=== PATIENT | male | born 1995 | race Caucasian/White ===

== ENCOUNTER 2017-02-26 03:55 | Inpatient (IN) | payer BC, OTHER ==
[~2017-02-26] VITALS: Ht 175.3 cm; Wt 62.2 kg
[2017-02-26 04:56] LABS: BASO % 0.3 %; BASO ABS # 0.03 K/uL (0-0.2); EOS % 0.1 %; EOS ABS # 0.01 K/uL (0-0.5); HEMATOCRIT 39.1 % (42-52); HEMOGLOBIN 13.3 g/dL (14.0-18.0); IG# 0.02 K/uL (0.00-0.02); LYMPH % 13.9 %; LYMPH ABS # 1.47 K/uL (1.2-3.4); MEAN CELL VOLUME 88.7 fL (80-100); MEAN CORPUSCULAR HEMOGLOBIN 30.2 pg (25-34); MEAN PLATELET VOLUME 9.8 fL (7.4-10.4); MONO % 4.9 %; MONO ABS # 0.52 K/uL (0.11-0.59); NEUT % 80.6 %; NEUT ABS # 8.53 K/uL (1.4-6.5); PLATELET COUNT 277 K/uL (130-400); RED CELL DISTRIBUTION WIDTH CV 13.1 % (11.5-14.5); RED CELL DISTRIBUTION WIDTH SD 42.3 fL (36.4-46.3); WHITE BLOOD COUNT 10.58 K/uL (4.8-10.8)
[2017-02-26 05:18] LABS: ALBUMIN 4.5 gm/dl (3.4-5.0); CREATININE 0.97 mg/dl (0.60-1.40); POTASSIUM 3.9 mmol/L (3.5-5.1)
[2017-02-26 05:29] LABS: TOTAL PROTEIN 8.6 gm/dl (6.4-8.2)
--- NOTE | 2017-02-26 07:42 | EMERGENCY ROOM VISIT NOTE ---
History Report prepared by [place]: Carolyn Flores Under the Supervision of: Dr. Luma Tai D.O. First contact with patient: 04:03 Chief Complaint: MENTAL HEALTH EVALUATION Stated Complaint: MENTAL HEALTH History of Present Illness The patient is a 22 year old male who presents to the Emergency Room for a mental health evaluation. Per case management, the patient was out drinking for his 22st birthday with his roommate. They report that the roommate saw him with a cord in his room and slammed the door in his face. They states that the roommate then opened the door and he had the cord unwrapped. Case management states that at this time the patient told his roommate that "one of them had to do it." They report that the roommate got away and called 911 while holding the door shut. They state that when he reopened it, the patient had a belt tied around his neck. The patient states that he has never done this before and wasn' t going to actually do anything. He states that he did have the belt around his neck. The patient denies a history of depression and ever being suicidal before tonight. Source of History: patient, nursing staff Onset: this evening Position: other (global) Quality: other (mental health) Timing: other (episode) Note: The patient admits to the belt being tied around his neck. The patient denies depression and being suicidal. Review of Systems See HPI for pertinent positives & negatives. A total of 10 systems reviewed and were otherwise negative. Past Medical & Surgical Surgical Problems: (1) [place] teeth extracted Family History Patient reports no known family medical history. Social History Smoking Status: Never Smoker Alcohol Use: occasionally Marital Status: single Housing Status: lives with roommate Occupation Status: [employer] student Current/Historical Medications No Active Prescriptions or Reported Meds Allergies Coded Allergies: No Known Allergies (Unverified , 02/26/17) Physical Exam Vital Signs Date Time Temp Pulse Resp B/P (MAP) Pulse Ox O2 Delivery O2 Flow Rate FiO2 02/26/17 06:00 84 20 127/89 98 Room Air 02/26/17 04:03 36.6 93 18 133/101 96 Room Air Physical Exam General: Smells of alcohol, but is cooperative. HEENT: Head - normocephalic and atraumatic Pupils are equal, round, and reactive to light. Extraocular eye muscles are intact, and sclera are anicteric. Nose - moist nasal mucosa without discharge. Mouth - moist buccal mucosa. Oropharynx is nonerythematous and there is no tonsillar exudate or edema noted. Neck: Supple; no JVD, nuchal rigidity, cervical lymphadenopathy. Heart: Regular rate and rhythm. There is a normal S1 and S2 with no murmurs, clicks, or gallops appreciated. Lungs: Clear to auscultation bilaterally with no wheezes, rales, or rhonchi. Abdomen: Soft, completely nontender, nondistended, with good bowel sounds. There are no palpable pulsatile masses or hepatosplenomegaly. There is no guarding, rigidity, or rebound noted. Extremities: No evidence of cyanosis, clubbing, or edema. There are easily palpable peripheral pulses. Skin: warm and dry with good turgor and no rashes. Psych: Appears slightly depressed. Admits to putting a belt around his neck . Medical Decision & Procedures Laboratory Results 02/26/17 04:30 Red Blood Count 4.41, Mean Corpuscular Volume 88.7, Mean Corpuscular Hemoglobin 30.2, Mean Corpuscular Hemoglobin Concent 34.0, Mean Platelet Volume 9.8, Neutrophils (%) (Auto) 80.6, Lymphocytes (%) (Auto) 13.9, Monocytes (%) (Auto) 4.9, Eosinophils (%) (Auto) 0.1, Basophils (%) (Auto) 0.3, Neutrophils # (Auto) 8.53, Lymphocytes # (Auto) 1.47, Monocytes # (Auto) 0.52, Eosinophils # (Auto) 0.01, Basophils # (Auto) 0.03 02/26/17 04:30 Test 02/26/17 04:15 02/26/17 04:30 Urine Color YELLOW Urine Appearance CLEAR (CLEAR) Urine pH 5.5 (4.5-7.5) Urine Specific [place] 1.020 (1.000-1.030) Urine Protein NEG (NEG) Urine Glucose (UA) NEG (NEG) Urine Ketones NEG (NEG) Urine Occult Blood NEG (NEG) Urine Nitrite NEG (NEG) Urine Bilirubin NEG (NEG) Urine Urobilinogen NEG (NEG) Urine Leukocyte Esterase NEG (NEG) Urine Opiates Screen NEG (NEG) Urine Methadone, Qualitative NEG (NEG) Urine Barbiturates NEG (NEG) Urine Phencyclidine (PCP) Level NEG (NEG) Ur Amphetamine/Methamphetamine NEG (NEG) MDMA (Ecstasy) Screen NEG (NEG) Urine Benzodiazepines Screen NEG (NEG) Urine Cocaine Metabolite NEG (NEG) Urine Marijuana (THC) NEG (NEG) White Blood Count 10.58 K/uL (4.8-10.8) Red Blood Count 4.41 M/uL (4.7-6.1) Hemoglobin 13.3 g/dL (14.0-18.0) Hematocrit 39.1 % (42-52) Mean Corpuscular Volume 88.7 fL (80-100) Mean Corpuscular Hemoglobin 30.2 pg (25-34) Mean Corpuscular Hemoglobin Concent 34.0 g/dl (32-36) Platelet Count 277 K/uL (130-400) Mean Platelet Volume 9.8 fL (7.4-10.4) Neutrophils (%) (Auto) 80.6 % Lymphocytes (%) (Auto) 13.9 % Monocytes (%) (Auto) 4.9 % Eosinophils (%) (Auto) 0.1 % Basophils (%) (Auto) 0.3 % Neutrophils # (Auto) 8.53 K/uL (1.4-6.5) Lymphocytes # (Auto) 1.47 K/uL (1.2-3.4) Monocytes # (Auto) 0.52 K/uL (0.11-0.59) Eosinophils # (Auto) 0.01 K/uL (0-0.5) Basophils # (Auto) 0.03 K/uL (0-0.2) RDW Standard Deviation 42.3 fL (36.4-46.3) RDW Coefficient of Variation 13.1 % (11.5-14.5) Immature Granulocyte % (Auto) 0.2 % Immature Granulocyte # (Auto) 0.02 K/uL (0.00-0.02) Anion Gap 5.0 mmol/L (3-11) Est Creatinine Clear Calc Drug Dose 94.2 ml/min Estimated GFR () 128.8 Estimated GFR (Non- 111.1 BUN/Creatinine Ratio 15.7 (10-20) Calcium Level 9.0 mg/dl (8.5-10.1) Total Bilirubin 0.4 mg/dl (0.2-1) Aspartate Amino Transf (AST/SGOT) 40 U/L (15-37) Alanine Aminotransferase (ALT/SGPT) 72 U/L (12-78) Alkaline Phosphatase 93 U/L (45-117) Total Protein 8.6 gm/dl (6.4-8.2) Albumin 4.5 gm/dl (3.4-5.0) Globulin 4.1 gm/dl (2.5-4.0) Albumin/Globulin Ratio 1.1 (0.9-2) Thyroid Stimulating Hormone (TSH) 1.010 uIu/ml (0.300-4.500) Salicylates Level < 1.7 mg/dl (2.8-20) Acetaminophen Level < 2 ug/ml (10-30) Ethyl Alcohol mg/dL 186.0 mg/dl (0-3) Laboratory results per my review. ED Course 0457: Past medical records reviewed. The patient was evaluated in room A5. A complete history and physical exam was performed. Labs were drawn as above. 0629: I reevaluated the patient and he was sound asleep. 0730: The patient was signed out to Dr. Hooks at change of shift. He will be medically cleared at 8 AM for psychiatric evaluation. Medical Decision The patient is a 22 year old male who presents to the Emergency Room for a mental health evaluation. Differential diagnoses include alcohol overdose, mood disorder, suicide attempt , attempted hanging. LABS: Alcohol 186 Normal white count Slightly anemic with a hemoglobin of 13.3 Normal renal function Normal glucose Normal LFTs except his AST was 40 Normal TSH Normal urinalysis Aspirin and Tylenol levels are negative Tox screen is negative this is a 22-year-old male patient presents to the emergency department after consuming alcohol and making a suicidal gesture. The patient was drinking alcohol for history first birthday. Upon arriving at home, the patient put a belt around his neck and threatened to hang himself. It seems that the patient needs inpatient psychiatric care to maintain his safety. Medication Reconcilliation Current Medication List: was personally reviewed by me Blood Pressure Screening Patient's blood pressure: Normal blood pressure Blood pressure disposition: Did not require urgent referral Impression Primary Impression: Suicide attempt Additional Impression: Alcohol intoxication Scribe Attestation The scribe's documentation has been prepared under my direction and personally reviewed by me in its entirety. I confirm that the note above accurately reflects all work, treatment, procedures, and medical decision making performed by me. Departure Information Dispostion Still a Patient Prescriptions No Active Prescriptions or Reported Meds Patient Instructions My [facility] Health Problem Qualifiers Additional Impression: Alcohol intoxication Complication of substance-induced condition: uncomplicated Qualified Codes: F10.920 - Alcohol use, unspecified with intoxication, uncomplicated
--- NOTE | 2017-02-26 08:09 | EMERGENCY ROOM VISIT NOTE ---
ED Visit Note Patient signed out to me at change of shift. History and physical verified by me. Upon discussing this case with the patient's morning I strongly recommended to him that we discussed everything with his parents however he is adamantly refusing. He is going to be examined by [facility] liaison. The patient was accepted to [facility]
[2017-02-26] MEDS ORDERED: SODIUM CHLORIDE 0.65% NA SOLN 45 ML (OCEAN) PRN (12:00)
[2017-02-26] MEDS ORDERED: MAGNESIUM HYDROXIDE SUSP 30 ML UDC PO PRN (12:00)
[2017-02-26] MEDS ORDERED: ALUMINUM/MAGNESIUM SUSP 30 ML UDC PO PRN (12:00)
[2017-02-26] MEDS ORDERED: BISMUTH SUBSALICYLATE PER ML OMNICELL CHARGE PO PRN (12:00)
[2017-02-26] MEDS ORDERED: ACETAMINOPHEN 325 MG TAB PO PRN (12:00)
[2017-02-26] MEDS ORDERED: hydrOXYzine HCL 25 MG TAB PO PRN ×2 (12:00)
[2017-02-26 12:01] VITALS: O2SAT 97
[2017-02-26 13:48] VITALS: BP 126/77; PULSE 82; TEMP 36.7; Ht 175.3 cm; Wt 62.2 kg
--- NOTE | 2017-02-26 14:04 | Psychiatric History & Physical ---
History Date of Service Feb 26, 2017. Identifying Data Jluis Marquez is a 22-year-old male admitted voluntarily on Feb 26, 2017 at 11:51 who was brought to the emergency department by police after roommate activated 911 in response to the patient's suicide attempt by putting a belt around his neck. Information is gathered from the patient and considered to be reliable Chief Complaint "Last night was [birth year] birthday". 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 In high school and early college he endorses that he had some bullying, struggled in his friend group but that his been getting better lately. [employer]. He denies any significant triggers to his episodes of depression but says that he finds some academic issues stressful. 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 He experiences anxiety when he has a lot of work due in general he has a sense that he has forgotten something. He admits that over the last 6 months or so he's been having intermittent thoughts of suicide but denies that he has ever had a plan or made an attempt. Yesterday was his 22st birthday and he went out with friends drinking. He says he had a good time while he was drinking but when he came back to his apartment with his roommate, he was feeling sad and put a belt around his neck. He denies that he was attempting suicide at that time but was considering whether or not suicide was an option for him. His roommate walked in and the patient panicked not wanting his roommate to overreact and cause him to be hospitalized. Jluis then panicked, took the belt from his neck but apparently went to another room and picked up a "record" and continued to consider whether or not suicide was the direction he wanted to go. By that time the roommate had made a decision to call 911. Police arrived and after talking with him he agreed to come to the hospital voluntarily. The patient is not happy about being in the hospital. He is asking how quickly he can be discharged. He does not want his family to know he is here and does not want his friend group to be aware either. He fears that they will focus on his depression and not on maintaining their regular relationship. He reports sleep that is generally okay, getting 5-7 hours per night with a nap in the day. His appetite has been up. He has been attending the gym in order to work out as he has had chronic disappointment in his own appearance. His energy has been up lately. Focus and concentration is described as "normal". He does have a tendency to anxiety at bedtime saying that he lays awake worrying about things. He reports that he has always had difficulty falling asleep even as a child. He describes himself generally as being shy around strangers but outgoing with friends. He feels that he is normally a jokester, does not let things bother him. He feels a need to keep busy, does not like idle time. I'm he denies any discrete episodes of euphoric mood, sleeplessness or pleasure seeking behavior that would be congruent with a bipolar disorder. He denies self-injurious behaviors. Past Psychiatric History Current OP Treatment: no current treatment Prior OP Treatment: no prior treatment Access to a Gun: Yes Suicide Attempts: No Past Medication Trials None Past Medical/Surgical History (1) TMJ (temporomandibular joint syndrome) Allergies Allergies: Coded Allergies: No Known Allergies (Unverified , 02/26/17) Home Medications No Active Prescriptions or Reported Meds Family History FH: cardiovascular disease FH: multiple sclerosis Pneumothorax History of Suicide: No History of Substance Abuse: Yes (paternal grandfather alcohol) Psychiatric History: Yes (mother with depression) Alcohol Use Alcohol Use In Past 12 Months: Yes (2-3 times per week) The patient endorses drinking on Fridays and occasional Saturdays since the fall. He has had 1 blackout in his life. He denies any legal consequences to alcohol. He will generally drinks 5 beers in a sitting and occasionally an unspecified amount of liquor Smoking Use Smoking Status: Never Smoker Substance History Denies Personal History Lives in: family lives in [place] Childhood: Raised by mother and father. He has one younger brother. Parents were both in the previously. 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 Relationship History: never Children: none Spiritual Affiliation: Church Legal History: none Psychological Trauma History: Denies Hx Traumatic Event Review of Systems Constitutional: denies no symptoms reported, denies see HPI, denies chills, denies diaphoresis, denies fever, denies malaise, denies weakness, denies other Eyes: denies: no symptoms, as stated in HPI, eye pain, tearing, itching, redness, discharge, double vision, visual changes, blurred vision, photophobia, other ENT: denies: no symptoms reported, see HPI, ear pain, ear discharge, loss of hearing, tinnitus, nasal pain, nasal congestion, rhinorrhea, epistaxis, sore throat, stidor, throat swelling, mouth pain, mouth swelling, dental pain, gum swelling, other Cardiovascular: denies: no symptoms reported, see HPI, chest pain, chest tightness, chest pressure, diaphoresis, palpitations, syncope, other Respiratory: denies: no symptoms reported, see HPI, cough, orthopnea, short of breath, stridor, wheezing, sputum production, cyanosis, PUGH, PND, other Gastrointestinal: denies no symptoms reported, denies see HPI, denies abdominal pain, denies constipation, denies diarrhea, denies nausea, denies vomiting, denies other Genitourinary - Male: denies: no symptoms, see HPI, rash, amenorrhea, penile itching, penile discharge, testicular pain, testicular swelling, impotence, other Musculoskeletal: denies no symptoms reported, denies see HPI, denies back pain , denies gout, denies joint pain, denies joint swelling, denies muscle pain, denies muscle stiffness, denies neck pain, denies other Integumentary: denies no symptoms reported, denies see HPI, denies change in color, denies change in hair/nails, denies dryness, denies lesions, denies lumps , denies rash, denies other Neurologic: denies: no symptoms, see HPI, headache, numbness, paresthesias, pre -existing deficit, seizure, tingling, tremors, general weakness, tics, focal weakness, vertigo, lethargy, memory loss, dizziness, other Endocrine: denies: no symptoms, as stated in HPI, cold intolerance, heat intolerance, hair changes, goiter, polydipsia, polyuria, skin changes, other Hematologic / Lymphatic: denies: no symptoms, as stated in HPI, abnormal clotting, adenopathy, anemia, easy bleeding, easy bruising, gums bleeding, petechiae, other Examination Physical Examination Exam performed by Dr. Hooks in the emergency Department has been reviewed and accepted his medical clearance for our unit Vital Signs Vital Signs Past 12 Hours Date Time Temp Pulse Resp B/P (MAP) Pulse Ox O2 Delivery O2 Flow Rate FiO2 02/26/17 12:01 78 18 116/55 97 Room Air 02/26/17 06:00 84 20 127/89 98 Room Air 02/26/17 04:03 36.6 93 18 133/101 96 Room Air Laboratory Results Last 24 Hours Test 02/26/17 04:15 02/26/17 04:30 Urine Color YELLOW Urine Appearance CLEAR Urine pH 5.5 Urine Specific [place] 1.020 Urine Protein NEG Urine Glucose (UA) NEG Urine Ketones NEG Urine Occult Blood NEG Urine Nitrite NEG Urine Bilirubin NEG Urine Urobilinogen NEG Urine Leukocyte Esterase NEG Urine Opiates Screen NEG Urine Methadone, Qualitative NEG Urine Barbiturates NEG Urine Phencyclidine (PCP) Level NEG Ur Amphetamine/Methamphetamine NEG MDMA (Ecstasy) Screen NEG Urine Benzodiazepines Screen NEG Urine Cocaine Metabolite NEG Urine Marijuana (THC) NEG White Blood Count 10.58 K/uL Red Blood Count 4.41 M/uL Hemoglobin 13.3 g/dL Hematocrit 39.1 % Mean Corpuscular Volume 88.7 fL Mean Corpuscular Hemoglobin 30.2 pg Mean Corpuscular Hemoglobin Concent 34.0 g/dl Platelet Count 277 K/uL Mean Platelet Volume 9.8 fL Neutrophils (%) (Auto) 80.6 % Lymphocytes (%) (Auto) 13.9 % Monocytes (%) (Auto) 4.9 % Eosinophils (%) (Auto) 0.1 % Basophils (%) (Auto) 0.3 % Neutrophils # (Auto) 8.53 K/uL Lymphocytes # (Auto) 1.47 K/uL Monocytes # (Auto) 0.52 K/uL Eosinophils # (Auto) 0.01 K/uL Basophils # (Auto) 0.03 K/uL RDW Standard Deviation 42.3 fL RDW Coefficient of Variation 13.1 % Immature Granulocyte % (Auto) 0.2 % Immature Granulocyte # (Auto) 0.02 K/uL Sodium Level 137 mmol/L Potassium Level 3.9 mmol/L Chloride Level 103 mmol/L Carbon Dioxide Level 29 mmol/L Anion Gap 5.0 mmol/L Blood Urea Nitrogen 15 mg/dl Creatinine 0.97 mg/dl Est Creatinine Clear Calc Drug Dose 94.2 ml/min Estimated GFR () 128.8 Estimated GFR (Non- 111.1 BUN/Creatinine Ratio 15.7 Random Glucose 100 mg/dl Calcium Level 9.0 mg/dl Total Bilirubin 0.4 mg/dl Aspartate Amino Transf (AST/SGOT) 40 U/L Alanine Aminotransferase (ALT/SGPT) 72 U/L Alkaline Phosphatase 93 U/L Total Protein 8.6 gm/dl Albumin 4.5 gm/dl Globulin 4.1 gm/dl Albumin/Globulin Ratio 1.1 Thyroid Stimulating Hormone (TSH) 1.010 uIu/ml Salicylates Level < 1.7 mg/dl Acetaminophen Level < 2 ug/ml Ethyl Alcohol mg/dL 186.0 mg/dl Mental Examination During interview pt is: alert and oriented, cooperative Appearance: appropriately dressed (in safety scrubs) Eye contact is: good Motor behavior is: no abnormal motor movements Speech: normal in rate, rhythm & volume Affect: depressed, flat Mood is: depressed, anxious Thought process: goal directed Thought content: reality based without delusions Suicidal thought are: present, Plan: present (experimenting with hanging himself), Intent: denied Homicidal thoughts are: denied Hallucinations: denies auditory, denies visual Cognition: memory grossly intact, attention grossly intact, language grossly intact Intelligence estimated to be: average Insight: impaired Judgement: impaired Impression / Recommendations Impression 22-year-old [employer] student admitted voluntarily after a suicide attempt by putting a belt around his neck. He wants to minimize these events in an attempt to keep his depression from being evident others however after discussion he recognizes that the pattern of behaviors is concerning. He is willing for a trial of an antidepressant, Zoloft, and we will start 25 mg tomorrow morning increasing to 50 mg the following day. Risks, benefits, alternatives were reviewed and accepted including the black box warning, risk for sexual side effects nausea and vomiting. He does not want his parents involved at this point neither asked him to reconsider this. He has dark circles under his eyes and is pale and is likely experiencing a hangover. We will encourage fluids and rest today. He is here voluntarily and we will continue to gather information toward the need for further hospitalization but at this time, requires inpatient care due to the severity of his condition and the risk for self-harm if discharged. Inventory Assets Strengths: Intelligence, intact family Needs: To avoid alcohol Risk Factors Assessment Male: Yes : Yes /single/: Yes Higher / Fall in social status: No Access to guns: Yes Health problems: No Mental Health Diagnoses: No Substance use disorders: No Previous attempt: No Previous psychiatric stay: No Hopelessness: No Smoker: No Protective Factors Assessment Spiritism beliefs: Yes : No Responsible for young children: No Employed: No Stable relationships: Yes Supportive family: Yes Recommendations (1) Major depressive disorder, recurrent severe without psychotic features 02/26 - Start Zoloft 25 mg tomorrow morning increasing to 50 mg thereafter - Encourage the patient to consider a family meeting - Contact the University as needed - The patient will need psychiatric aftercare - Encourage participation in group and individual counseling - Every 15 minute checks for safety - The patient is encouraged to abstain from alcohol in view of mood - Assist the patient to explore healthy coping strategies Dr. Vane Moody is personally been involved in reviewing this case and in the development of the treatment plan. CPT Code Initial Hospital Care: 57026
[2017-02-27 06:39] VITALS: BP_SYST 114; BP_DIAS 65; BP_DIAS 74; PULSE 54; PULSE 71; TEMP 36.3
[2017-02-27] MEDS ORDERED: SERTRALINE HCL 50 MG TAB PO ONE (09:00)
--- NOTE | 2017-02-27 10:27 | Psychiatric Progress Notes ---
Progress Note Date of Service Feb 27, 2017. Interval History 22-year-old [employer] student admitted voluntarily after a suicide attempt by putting a belt around his neck. Chief Complaint "I'd really like to be at my club meeting aylin.". Subjective Patient was seen & assessed interval progress reviewed with Treatment Team. The patient is adjusting to the unit, but remains focused on discharge, wanting to return to classes and clubs. He did speak with his mother last evening by phone, told her he was in the hospital with depression and would be getting a counselor. He felt that she handled this well, but does not want his parents involved in any meetings. He received his first dose of Zoloft this AM, denies side effects. Sleep and appetite or good. He says that he is willing to have psychiatric aftercare, but wants to know what he needs to do in order to get discharged. He denies any further thoughts of suicide. He is clearly disappointed that I will not discharge him today. Review of Systems Constitutional: No fever, No chills, No sweats, No weight loss, No weakness, No fatigue, No problem reported ENT: No hearing loss, No unusual epistaxis, No nasal symptoms, No sore throat, No tinnitus, No dental problems, No trouble swallowing, No problem reported Respiratory: No cough, No sputum, No wheezing, No shortness of breath, No dyspnea on exertion, No dyspnea at rest, No hemoptysis, No problem reported Cardiovascular: No chest pain, No orthopnea, No PND, No edema, No claudication , No palpitations, No problem reported Abdomen: No pain, No nausea, No vomiting, No diarrhea, No constipation, No GI bleeding, No problem reported Musculoskeletal: No joint pain, No muscle pain, No swelling, No calf pain, No problem reported Neurologic: No memory loss, No paralysis, No weakness, No numbness/tingling, No vertigo, No balance problems, No problem reported Psychiatric: + depression symptoms, + anxiety Sleep Information Total Hours of Sleep: 4.00 Meal Information Percent of Breakfast Consumed: 50 Percent of Dinner Consumed: 100 Mental Status Exam During interview pt is: alert and oriented, cooperative Appearance: appropriately dressed (in safety scrubs) Eye contact is: good Motor behavior is: no abnormal motor movements Speech: normal in rate, rhythm & volume Affect: depressed, flat Mood is: depressed, anxious Thought process: goal directed Thought content: reality based without delusions Suicidal thought are: present, Plan: present (experimenting with hanging himself), Intent: denied Homicidal thoughts are: denied Hallucinations: denies auditory, denies visual Cognition: memory grossly intact, attention grossly intact, language grossly intact Intelligence estimated to be: average Insight: impaired Judgement: impaired Impression Still focused on discharge and doing whatever is necessary to do so. Affectively remains very flat and we have done nothing to mediate risk factors yet. He is agreeable to a meeting with his roommate, who found him with the belt around his neck, but not with his parents. zolot will increase to 50 mg. tomorrow. Would like to see him engage more fully in treatment and reconsider his decision not to involve his parents. Plan (1) Major depressive disorder, recurrent severe without psychotic features 02/26 - Start Zoloft 25 mg tomorrow morning increasing to 50 mg thereafter - Encourage the patient to consider a family meeting - Contact the University as needed - The patient will need psychiatric aftercare - Encourage participation in group and individual counseling - Every 15 minute checks for safety - The patient is encouraged to abstain from alcohol in view of mood - Assist the patient to explore healthy coping strategies 02/27 - Continue zoloft to 50 mg. tomorrow - Meeting with roommate - Set up aftercare - Encourage patient to reconsider meeting with parents. Discharge / Aftercare Planning Primary Care Physician: Name: Cathy Therapist: Name: Nisha Peanut Separator: Name: None Visit Code E&M Code: 36937 Inventory Assets Strengths: Intelligence, intact family Needs: To avoid alcohol Risk Factors Assessment Male: Yes : Yes /single/: Yes Higher / Fall in social status: No Health problems: No Mental Health Diagnoses: No Substance use disorders: No Previous attempt: No Previous psychiatric stay: No Hopelessness: No Smoker: No Protective Factors Assessment Catholic beliefs: Yes : No Responsible for young children: No Employed: No Stable relationships: Yes Supportive family: Yes Data Vital Signs Last 24 Hrs: Date Time Temp Pulse Resp B/P (MAP) Pulse Ox O2 Delivery O2 Flow Rate FiO2 02/27/17 06:39 36.3 71 16 114/65 54 114/74 02/26/17 13:48 36.7 82 18 126/77 1/10/18 12:01 78 18 116/55 97 Room Air Meds Administered Last 24 Hrs: Meds Administered (Past 24Hrs) Medications (Trade) Dose Ordered Sig/Tran Route Start Time Stop Time Status Last Admin Dose Admin Sertraline HCl (Zoloft Tab) 25 mg 0900 ONCE PO 02/27/17 09:00 02/27/17 09:01 DC 02/27/17 09:27 25 MG Lab Results Last 24 Hrs: 02/26/17 04:30 Red Blood Count 4.41, Mean Corpuscular Volume 88.7, Mean Corpuscular Hemoglobin 30.2, Mean Corpuscular Hemoglobin Concent 34.0, Mean Platelet Volume 9.8, Neutrophils (%) (Auto) 80.6, Lymphocytes (%) (Auto) 13.9, Monocytes (%) (Auto) 4.9, Eosinophils (%) (Auto) 0.1, Basophils (%) (Auto) 0.3, Neutrophils # (Auto) 8.53, Lymphocytes # (Auto) 1.47, Monocytes # (Auto) 0.52, Eosinophils # (Auto) 0.01, Basophils # (Auto) 0.03 02/26/17 04:30 Test 02/26/17 04:15 02/26/17 04:30 Urine Color YELLOW Urine Appearance CLEAR (CLEAR) Urine pH 5.5 (4.5-7.5) Urine Specific [place] 1.020 (1.000-1.030) Urine Protein NEG (NEG) Urine Glucose (UA) NEG (NEG) Urine Ketones NEG (NEG) Urine Occult Blood NEG (NEG) Urine Nitrite NEG (NEG) Urine Bilirubin NEG (NEG) Urine Urobilinogen NEG (NEG) Urine Leukocyte Esterase NEG (NEG) Urine Opiates Screen NEG (NEG) Urine Methadone, Qualitative NEG (NEG) Urine Barbiturates NEG (NEG) Urine Phencyclidine (PCP) Level NEG (NEG) Ur Amphetamine/Methamphetamine NEG (NEG) MDMA (Ecstasy) Screen NEG (NEG) Urine Benzodiazepines Screen NEG (NEG) Urine Cocaine Metabolite NEG (NEG) Urine Marijuana (THC) NEG (NEG) White Blood Count 10.58 K/uL (4.8-10.8) Red Blood Count 4.41 M/uL (4.7-6.1) Hemoglobin 13.3 g/dL (14.0-18.0) Hematocrit 39.1 % (42-52) Mean Corpuscular Volume 88.7 fL (80-100) Mean Corpuscular Hemoglobin 30.2 pg (25-34) Mean Corpuscular Hemoglobin Concent 34.0 g/dl (32-36) Platelet Count 277 K/uL (130-400) Mean Platelet Volume 9.8 fL (7.4-10.4) Neutrophils (%) (Auto) 80.6 % Lymphocytes (%) (Auto) 13.9 % Monocytes (%) (Auto) 4.9 % Eosinophils (%) (Auto) 0.1 % Basophils (%) (Auto) 0.3 % Neutrophils # (Auto) 8.53 K/uL (1.4-6.5) Lymphocytes # (Auto) 1.47 K/uL (1.2-3.4) Monocytes # (Auto) 0.52 K/uL (0.11-0.59) Eosinophils # (Auto) 0.01 K/uL (0-0.5) Basophils # (Auto) 0.03 K/uL (0-0.2) RDW Standard Deviation 42.3 fL (36.4-46.3) RDW Coefficient of Variation 13.1 % (11.5-14.5) Immature Granulocyte % (Auto) 0.2 % Immature Granulocyte # (Auto) 0.02 K/uL (0.00-0.02) Anion Gap 5.0 mmol/L (3-11) Est Creatinine Clear Calc Drug Dose 94.2 ml/min Estimated GFR () 128.8 Estimated GFR (Non- 111.1 BUN/Creatinine Ratio 15.7 (10-20) Calcium Level 9.0 mg/dl (8.5-10.1) Total Bilirubin 0.4 mg/dl (0.2-1) Aspartate Amino Transf (AST/SGOT) 40 U/L (15-37) Alanine Aminotransferase (ALT/SGPT) 72 U/L (12-78) Alkaline Phosphatase 93 U/L (45-117) Total Protein 8.6 gm/dl (6.4-8.2) Albumin 4.5 gm/dl (3.4-5.0) Globulin 4.1 gm/dl (2.5-4.0) Albumin/Globulin Ratio 1.1 (0.9-2) Thyroid Stimulating Hormone (TSH) 1.010 uIu/ml (0.300-4.500) Salicylates Level < 1.7 mg/dl (2.8-20) Acetaminophen Level < 2 ug/ml (10-30) Ethyl Alcohol mg/dL 186.0 mg/dl (0-3)
[2017-02-28 06:46] VITALS: BP_SYST 111; BP_SYST 124; BP_DIAS 65; BP_DIAS 74; PULSE 52; PULSE 97; TEMP 36.3
[2017-02-28] MEDS: SERTRALINE HCL 50 MG TAB PO SCH (09:54)
--- NOTE | 2017-02-28 12:46 | Psychiatric Progress Notes ---
Progress Note Date of Service Feb 28, 2017. Interval History 22-year-old [employer] student admitted voluntarily after a suicide attempt by putting a belt around his neck. Chief Complaint "I don't really like it here". Subjective Patient was seen & assessed interval progress reviewed with Treatment Team. Pt reportedly had meeting with his room mate yesterday which went well. Pt was also willing to call his mother and share selective details about the recent events. Pt willing to participate in aftercare which will likely need to be in close proximity to the [place]. Pt was seen today to assess progress since admission. He states he has had time to progress the recent events and feels like "it was a step I needed to take to determine if I really wanted to kill myself or not". He explains that he had to go through the steps of acting out a suicide in order to know if it was something he really felt he should do. Pt states, "I would have stopped myself even if I felt like going through with it, it was more like a test". When challenged on this thought process, he states he realizes it doesn't make sense to the people he talks to, but it was something that was helpful for him. Pt continues to be set on discharge as he feels he is not benefiting from inpatient treatment. He is agreeable to outpatient providers and realizes after conversation with a staff member yesterday, that there are some things that were easier to process when he was able to talk them out. Pt denies intent for suicide at this point in time but feels that his mood is unchanged. Review of Systems Psych: denies symptoms other than stated above Constitutional: denied Cardiovascular: denied GI: denied Neurologic: denied Remainder of 10 body systems also reviewed and denied other than noted above. Sleep Information Total Hours of Sleep: 4.25 Meal Information Percent of Breakfast Consumed: 75 Percent of Lunch Consumed: 50 Percent of Dinner Consumed: 80 Mental Status Exam During interview pt is: alert and oriented, cooperative Appearance: appropriately dressed (gym shorts and t-shirt) Eye contact is: good Motor behavior is: no abnormal motor movements Speech: normal in rate, rhythm & volume Affect: depressed, blunted Mood is: depressed ("I'm fine") Thought process: goal directed, clear, coherent Thought content: reality based without delusions Suicidal thought are: denied, Plan: denied (but had experimented with hanging) , Intent: denied Homicidal thoughts are: denied Hallucinations: denies auditory, denies visual Cognition: memory grossly intact, attention grossly intact, language grossly intact Intelligence estimated to be: average Insight: impaired Judgement: impaired Impression Remains eager for discharge. Was explained that we were securing aftercare and patient requested to be discharged if his room mate was willing to watch him. Aftercare has been established since interview with therapy appointment on . Friday discharge may be reasonable to allow him to attend classes Friday. Participation continues to be limited as patient expresses difficulty engaging with group activities and preference to be alone, which is another concerning factor. Limited involvement of parents and little done to assess risk factors. Continue on Zoloft 50mg. Plan (1) Major depressive disorder, recurrent severe without psychotic features 02/26 - Start Zoloft 25 mg tomorrow morning increasing to 50 mg thereafter - Encourage the patient to consider a family meeting - Contact the University as needed - The patient will need psychiatric aftercare - Encourage participation in group and individual counseling - Every 15 minute checks for safety - The patient is encouraged to abstain from alcohol in view of mood - Assist the patient to explore healthy coping strategies 02/27 - Continue zoloft to 50 mg. tomorrow - Meeting with roommate - Set up aftercare - Encourage patient to reconsider meeting with parents. 02/28 - Continue medications as above - Aftercare in place for both psychiatrist and therapist through [facility] - Encourage ongoing involvement of parents - Continue to encourage participation in groups and therapy Discharge / Aftercare Planning Primary Care Physician: Name: [facility] Psychiatrist: Name: FELECIA Rosas Date of Appointment: Mar 11, 2017 Time of Appointment: 1:30 pm Appointment Notes: [facility] Therapist: Name: FELECIA Zendejas Date of Appointment: Mar 04, 2017 Time of Appointment: 1:00 pm Appointment Notes: [facility] the [facility] ) 3rd floor [place] Pilot: Name: [facility] ( [facility] ) Date of Appointment: Mar 04, 2017 Time of Appointment: 3:00 pm Appointment Notes: [address] [place] [address] Other: Name of Appointment #1: [facility] Visit Code E&M Code: 89408 Inventory Assets Strengths: Intelligence, intact family Needs: To avoid alcohol Risk Factors Assessment Male: Yes : Yes /single/: Yes Higher / Fall in social status: No Health problems: No Mental Health Diagnoses: No Substance use disorders: No Previous attempt: No Previous psychiatric stay: No Hopelessness: No Smoker: No Protective Factors Assessment Gnosticism beliefs: Yes : No Responsible for young children: No Employed: No Stable relationships: Yes Supportive family: Yes Data Vital Signs Last 24 Hrs: Date Time Temp Pulse Resp B/P (MAP) Pulse Ox O2 Delivery O2 Flow Rate FiO2 02/28/17 06:46 36.3 52 16 111/65 97 124/74 Meds Administered Last 24 Hrs: Meds Administered (Past 24Hrs) Medications (Trade) Dose Ordered Sig/Tran Route Start Time Stop Time Status Last Admin Dose Admin Sertraline HCl (Zoloft Tab) 50 mg QAM PO 02/28/17 09:00 03/30/17 08:59 02/28/17 09:54 50 MG Sertraline HCl (Zoloft Tab) 25 mg 0900 ONCE PO 02/27/17 09:00 02/27/17 09:01 DC 02/27/17 09:27 25 MG
--- NOTE | 2017-02-28 16:23 | Psychiatric Progress Notes ---
Psychiatric Progress Note Date of Service Feb 28, 2017. Notes Patient seen, MS assessed. Rates mood as 6-7/10. Encouraged cooperation with care and treatment plan as outlined by SOHAN and PHYLLIS. Patient rates mood as good but appears rather flat, minimizing attempt to family but did have session with Roommate. Case discussed with treatment team.
[2017-03-01 06:55] VITALS: BP_SYST 107; BP_SYST 110; BP_DIAS 65; BP_DIAS 67; PULSE 56; PULSE 62; TEMP 36.4
[2017-03-01] MEDS: SERTRALINE HCL 50 MG TAB PO SCH (09:14)
[2017-03-01] MEDS ORDERED: ZLF50 PO (12:55)
--- NOTE | 2017-03-01 12:58 | Discharge Instructions ---
Discharge Information Report Includes Report will include the: Discharge Instructions & Summary Admission Admission Date / Time: Feb 26, 2017 at 11:51 Reason for Admission: Suicide Attempt Discharge Discharge Diagnosis / Problem: Suicide Attempt, Depression Condition at Discharge: Fair Discharge Goals Goal(s): Improve function, Increase independence, Therapeutic intervention Activity Recommendations Activity Limitations: resume your previous activity . Instructions / Follow-Up Instructions / Follow-Up . SPECIAL CARE INSTRUCTIONS: 1. Follow through with your scheduled aftercare appointments. If unable to keep an appointment, please call to reschedule. 2. Take your medication only as prescribed. Medication should not be changed or stopped without the approval of your doctor. In the event of worsening symptoms or concerns about side effects, contact your doctor immediately. 3. Utilize new healthy coping skills, anger management skills, and stress management skills learned during your hospitalization. Journal feelings and process them with a support person. Identify stressors or situations that may result in relapse, deterioration or inappropriate behaviors and develop a plan to deal with those issues. 4. If your coping skills are ineffective and you are in crisis, contact your outpatient providers for direction. If unable to reach your providers, please call the CAN HELP LINE AT or go to the closest Emergency Room. 5. Avoid alcohol and un-prescribed drugs. 6. You have been provided with the Mental Health Advance Directives Pamphlet for your review. AFTERCARE APPOINTMENTS: * Please call your insurance company prior to your scheduled appointment to confirm your aftercare providers are covered. Take your insurance information to your appointments. . Discharge / Aftercare Planning Primary Care Physician: Name: [facility] Psychiatrist: Name: FELECIA Rosas Date of Appointment: Mar 11, 2017 Time of Appointment: 1:30 pm Appointment Notes: [facility] Therapist: Name Of Therapist: FELECIA Zendejas Date of Appointment: Mar 04, 2017 Time of Appointment: 1:00 pm Appointment Comments: [facility] ( by the [facility] ) 3rd floor Occupational Therapy Co Director: Name: [facility] ( [place] ) Date of Appointment: Mar 04, 2017 Time of Appointment: 3:00 pm Appointment Notes: Critical access hospital [facility] Other: Name of Appointment #1: [facility] . Follow-Up Care Plan for Follow-Up Care: Pt was set up with outpatient psychiatrist and therapy as part of discharge planning. Will receive services through [facility] on [facility]. Current Hospital Diet Patient's current hospital diet: Regular Diet Discharge Diet Recommended Diet: Regular Diet Procedures Procedures Performed: No Pending Studies Pending Studies at Discharge: No Medical Emergencies . Who to Call and When: Medical Emergencies: For questions or emergencies related to your hospital stay, please contact the Inpatient Behavioral Health Unit at [phone]. A psychiatric attendant is on-call 09/09 for the Behavioral Health Unit for emergencies At any time you feel your situation is an emergency, you may also call 911 immediately. . Non-Emergent Contact Non-Emergency issues call your: Primary Care Provider, Psychiatrist, Therapist Advance Directives Do You Have an Existing Mental: No Existing Living Will: No Existing Power of Plate And Weld Inspector: No Advance Directives Info Given: To Pt/S.O. Advance Directives Reason: Declines as Mental Health Visit. Discharge Summary Admission HPI Per the Admitting provider: The patient is a 22-year-old [employer] sophomore who has never been in psychiatric treatment before but admits that he has had depression off and on since the age of 18. In high school and early college he endorses that he had some bullying, struggled in his friend group but that his been getting better lately. [facility]. He denies any significant triggers to his episodes of depression but says that he finds some academic issues stressful. 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 He experiences anxiety when he has a lot of work due in general he has a sense that he has forgotten something. He admits that over the last 6 months or so he's been having intermittent thoughts of suicide but denies that he has ever had a plan or made an attempt. Yesterday was his 22st birthday and he went out with friends drinking. He says he had a good time while he was drinking but when he came back to his apartment with his roommate, he was feeling sad and put a belt around his neck. He denies that he was attempting suicide at that time but was considering whether or not suicide was an option for him. His roommate walked in and the patient panicked not wanting his roommate to overreact and cause him to be hospitalized. Jluis then panicked, took the belt from his neck but apparently went to another room and picked up a "record" and continued to consider whether or not suicide was the direction he wanted to go. By that time the roommate had made a decision to call 911. Police arrived and after talking with him he agreed to come to the hospital voluntarily. The patient is not happy about being in the hospital. He is asking how quickly he can be discharged. He does not want his family to know he is here and does not want his friend group to be aware either. He fears that they will focus on his depression and not on maintaining their regular relationship. He reports sleep that is generally okay, getting 5-7 hours per night with a nap in the day. His appetite has been up. He has been attending the gym in order to work out as he has had chronic disappointment in his own appearance. His energy has been up lately. Focus and concentration is described as "normal". He does have a tendency to anxiety at bedtime saying that he lays awake worrying about things. He reports that he has always had difficulty falling asleep even as a child. He describes himself generally as being shy around strangers but outgoing with friends. He feels that he is normally a jokester, does not let things bother him. He feels a need to keep busy, does not like idle time. I'm he denies any discrete episodes of euphoric mood, sleeplessness or pleasure seeking behavior that would be congruent with a bipolar disorder. He denies self-injurious behaviors. Hospital Course (1) Major depressive disorder, recurrent severe without psychotic features 02/26 - Start Zoloft 25 mg tomorrow morning increasing to 50 mg thereafter - Encourage the patient to consider a family meeting - Contact the University as needed - The patient will need psychiatric aftercare - Encourage participation in group and individual counseling - Every 15 minute checks for safety - The patient is encouraged to abstain from alcohol in view of mood - Assist the patient to explore healthy coping strategies 02/27 - Continue zoloft to 50 mg. tomorrow - Meeting with roommate - Set up aftercare - Encourage patient to reconsider meeting with parents. 02/28 - Continue medications as above - Aftercare in place for both psychiatrist and therapist through [facility] - Encourage ongoing involvement of parents - Continue to encourage participation in groups and therapy Risk Factors Assessment Male: Yes : Yes /single/: Yes Higher / Fall in social status: No Health problems: No Mental Health Diagnoses: No Substance use disorders: No Previous attempt: No Previous psychiatric stay: No Hopelessness: No Smoker: No Protective Factors Assessment Denominational beliefs: Yes : No Responsible for young children: No Employed: No Stable relationships: Yes Supportive family: Yes Day of Discharge Assessment Hospital Course - Pt was admitted to [address] [place] [address] on 02/26 after being brought to the ED by police. Pt's room mate called 911 when he found the patient with a belt around his neck. Pt states he had been drinking and celebrating his 22st birthday. Initially minimizing upon admission to the unit, denying that it had been a suicide attempt but rather exploring if it was "for me". Pt was started on Zoloft 50mg and has seen an improvement is symptoms as well as ability to process the events leading to admission. Pt has been somewhat participating with groups, but prefers to be alone while on the unit and was rarely engaging with peers or therapist until the end of his stay. Pt has been eager for discharge since admission, but has shown better ability to process the events and has taken steps to speak with his mother and his room mate about what he has been going through. Pt eventually agreed to outpatient therapy and medication management through [facility]. Day of Discharge Assessment - Pt was seen today to assess progress since admission. He continues to report that he does not like being here and has not found it very helpful. He does, however, state that over the last day he has found benefit in talking with a few staff members. Pt feels there is not much more he will gain from staying here and would like to leave. He reports being willing to follow-up with outpatient care and thinks it will be helpful. Safety plan was reviewed with the patient who states his room mate will be around this weekend. Pt plans to speak with his room mate as well as call his mother if he continues to feel depressed. Pt denies SI and states, "I now know that's not for me, I don't want to do that". Abstaining from alcohol for the time being was also discussed, and patient agreed that would be beneficial for a while. Pt reports he is aware that our recommendation is that he stay and continue with inpatient treatment, but he feels he is prepared for discharge. Involuntary commitment was considered, however, patient no longer meets adequate criteria for inpatient hospitalization. Pt permitted to be discharged with expectation for compliance with outpatient providers and adherence to his safety plan. Pt denies SI/HI, A/V hallucinations, and other psychosis. Laboratory Refer to printed laboratory reports Test 02/26/17 04:15 02/26/17 04:30 Urine Color YELLOW Urine Appearance CLEAR Urine pH 5.5 Urine Specific [place] 1.020 Urine Protein NEG Urine Glucose (UA) NEG Urine Ketones NEG Urine Occult Blood NEG Urine Nitrite NEG Urine Bilirubin NEG Urine Urobilinogen NEG Urine Leukocyte Esterase NEG Urine Synthetic Stimulants see note Urine Opiates Screen NEG Urine Methadone, Qualitative NEG Urine Barbiturates NEG Urine Phencyclidine (PCP) Level NEG Ur Amphetamine/Methamphetamine NEG MDMA (Ecstasy) Screen NEG Urine Benzodiazepines Screen NEG Urine Cocaine Metabolite NEG Cannabinoids Comment see note Urine Synthetic Cannabinoids NEGATIVE Ur Synthetic Cannabinoids Confirm Urine Marijuana (THC) NEG White Blood Count 10.58 Red Blood Count 4.41 Hemoglobin 13.3 Hematocrit 39.1 Mean Corpuscular Volume 88.7 Mean Corpuscular Hemoglobin 30.2 Mean Corpuscular Hemoglobin Concent 34.0 Platelet Count 277 Mean Platelet Volume 9.8 Neutrophils (%) (Auto) 80.6 Lymphocytes (%) (Auto) 13.9 Monocytes (%) (Auto) 4.9 Eosinophils (%) (Auto) 0.1 Basophils (%) (Auto) 0.3 Neutrophils # (Auto) 8.53 Lymphocytes # (Auto) 1.47 Monocytes # (Auto) 0.52 Eosinophils # (Auto) 0.01 Basophils # (Auto) 0.03 RDW Standard Deviation 42.3 RDW Coefficient of Variation 13.1 Immature Granulocyte % (Auto) 0.2 Immature Granulocyte # (Auto) 0.02 Sodium Level 137 Potassium Level 3.9 Chloride Level 103 Carbon Dioxide Level 29 Anion Gap 5.0 Blood Urea Nitrogen 15 Creatinine 0.97 Est Creatinine Clear Calc Drug Dose 94.2 Estimated GFR () 128.8 Estimated GFR (Non- 111.1 BUN/Creatinine Ratio 15.7 Random Glucose 100 Calcium Level 9.0 Total Bilirubin 0.4 Aspartate Amino Transferase (AST) 40 Alanine Aminotransferase (ALT) 72 Alkaline Phosphatase 93 Total Protein 8.6 Albumin 4.5 Globulin 4.1 Albumin/Globulin Ratio 1.1 Thyroid Stimulating Hormone (TSH) 1.010 Salicylates Level < 1.7 Acetaminophen Level < 2 Ethyl Alcohol mg/dL 186.0 Total Time Total Time Spent (min): Greater than 30 minutes Tobacco Cessation at Discharge Smoking Status: Never Smoker FDA approved Prescription: non-smoker
--- NOTE | 2017-03-02 09:43 | Psych Management Progress Note ---
Psychiatry Miscellaneous Date of Service: Mar 02, 2017. late entry for 03/01/17--I personally met with patient on the day of discharge. He appeared brighter today and voiced safety plan as well as plans for weekend. He reported some relief from sharing details re: attempt with his mother ( previously hadn't addressed) and states that he will follow discharge recs. He has consistently denied SI and recognizes that should not drink ETOH with excess.
== END 2017-03-01 13:50 | disposition home or self-care (01) | DRG 885 ==
LOC: EDSEX 03:58 → EDBD 03:58 → C.EDA 03:59 → C.MHU 11:51
PROVIDERS: ADMIT Psychiatry & Neurology Psychiatry; ATTEND Psychiatry & Neurology Psychiatry
DX: F33.2 Major depressive disorder, recurrent severe without psychotic features (principal); F10.920 Alcohol use, unspecified with intoxication, uncomplicated; Y90.6 Blood alcohol level of 120-199 mg/100 ml; Z81.1 Family history of alcohol abuse and dependence; Z81.8 Family history of other mental and behavioral disorders; Z82.49 Family history of ischemic heart disease and other diseases of the circulatory system; Z82.0 Family history of epilepsy and other diseases of the nervous system; X83.8XXA Intentional self-harm by other specified means, initial encounter